=== PATIENT | female | born 1955 | race Two or more races ===

== ENCOUNTER 2023-04-11 19:14 | Emergency (ER) | payer OTHER ==
[~2023-04-11] VITALS: Ht 162.6 cm; Wt 64.0 kg
[2023-04-11] MEDS ORDERED: MICARDIS80 MG PO (20:02)
[2023-04-11] MEDS ORDERED: FARXIGA10 MG PO (20:02)
[2023-04-11] MEDS ORDERED: ECOTRIN81 MG PO (20:02)
[2023-04-11] MEDS ORDERED: CARVEDILOL ER40 MG (20:03)
[2023-04-11] MEDS ORDERED: VESICARE10 MG PO (20:03)
[2023-04-11] MEDS ORDERED: BRILINTA90 MG PO (20:03)
[2023-04-11] MEDS ORDERED: ATORVASTATIN CA80 MG PO (20:03)
[2023-04-11] MEDS ORDERED: AMLODIPINE-OLM1 EACH PO (20:04)
[2023-04-11] MEDS ORDERED: CLEOCIN HCL300 MG PO (21:01)
[2023-04-11] MEDS ORDERED: DICLOFENAC SODI75 MG PO (21:01)
[2023-04-11] MEDS ORDERED: PEPCID AC20 MG PO (21:01)
== END 2023-04-11 22:03 | disposition home or self-care (01) ==
LOC: ER 19:14
DX: L02.31 Cutaneous abscess of buttock (principal); E11.9 Type 2 diabetes mellitus without complications; Z79.84 Long term (current) use of oral hypoglycemic drugs; I10 Essential (primary) hypertension; Z88.8 Allergy status to other drugs, medicaments and biological substances